=== PATIENT | female | born 1940 | race Hispanic/Latino ===

== ENCOUNTER 2019-11-10 14:55 | Emergency (ER) | payer OTHER ==
[2019-11-10] MEDS ORDERED: TETANUS/DIPHTHERIA TOXOID [ADULT] 0.5 ML VIAL IM ONE (14:56)
[2019-11-10] MEDS ORDERED: CLINDAMYCIN 600 MG/D5% WATER 50 ML IV ONE (16:33)
[2019-11-10 16:46] LABS: EOSINOPHILS % (AUTO) 5.9 % (0.0-8.0); HEMATOCRIT 28.3 % (36-48); LYMPHOCYTES % (AUTO) 14.7 % (21.0-51.0); MEAN CORPUSCULAR HGB CONC 32.5 g/dL (32.0-36.0); MEAN CORPUSCULAR VOLUME 92.2 fL (79-99); MONOCYTES % (AUTO) 5.1 % (3.0-13.0); NEUTROPHILS % (AUTO) 73.9 % (40.0-77.0); PLATELET COUNT (AUTO) 207 K/uL (130-400); RED BLOOD CELL COUNT(AUTO) 3.07 MIL/uL (4.00-5.50); RED CELL DISTRIBUTION WIDTH 15.9 % (11.0-15.5); WHITE BLOOD COUNT (AUTO) 5.5 K/uL (4.8-10.8)
[2019-11-10 17:00] LABS: ALBUMIN 2.3 g/dL (3.5-5.0); BILIRUBIN,TOTAL 0.6 mg/dL (0.2-1.0); CREATININE 1.1 mg/dL (0.5-1.5); TOTAL PROTEIN, SERUM 6.7 g/dL (6.0-8.3)
[2019-11-10 17:01] LABS: POTASSIUM 2.3 mmol/L (3.5-5.1)
[2019-11-10] MEDS ORDERED: POTASSIUM BICARB/CIT AC 25 MEQ TABLET.EFF ONE (17:41)
== END 2019-11-10 19:58 | disposition home or self-care (01) ==
LOC: EDH 14:55 → EDBD 14:55 → EDH 19:58
DX: L02.818 Cutaneous abscess of other sites (principal); E87.6 Hypokalemia; I10 Essential (primary) hypertension; E78.00 Pure hypercholesterolemia, unspecified
CPT/HCPCS: 36415; 70450; 80053; 85025; 87070; 87076; 87077; 87186; 90471; 90714; 96365; 96366; 99284; J3490

== ENCOUNTER 2019-12-09 15:57 | Observation (INO) | payer OTHER ==
[~2019-12-09] VITALS: Ht 149.9 cm; Wt 50.3 kg
[2019-12-09 16:26] LABS: BASOPHILS % (AUTO) 0.4 % (0.0-5.0); EOSINOPHILS % (AUTO) 3.3 % (0.0-8.0); LYMPHOCYTES % (AUTO) 18.5 % (21.0-51.0); MEAN CORPUSCULAR HEMOGLOBIN 29.7 pg (27.0-33.0); MEAN CORPUSCULAR HGB CONC 31.9 g/dL (32.0-36.0); MEAN CORPUSCULAR VOLUME 93.1 fL (79-99); NEUTROPHILS % (AUTO) 71.4 % (40.0-77.0); PLATELET COUNT (AUTO) 183 K/uL (130-400); RED CELL DISTRIBUTION WIDTH 15.9 % (11.0-15.5); WHITE BLOOD COUNT (AUTO) 4.8 K/uL (4.8-10.8)
[2019-12-09 16:31] LABS: CREATININE 1.2 mg/dL (0.5-1.5); POTASSIUM 3.2 mmol/L (3.5-5.1)
[2019-12-09 16:33] LABS: INR 0.98 (0.85-1.15); PARTIAL THROMBOPLASTIN TIME 27.3 SEC (26.3-35.5); PROTHROMBIN TIME 10.6 SEC (9.6-11.6)
[2019-12-09 16:36] LABS: ALBUMIN 2.6 g/dL (3.5-5.0); BILIRUBIN,TOTAL 0.6 mg/dL (0.2-1.0); TOTAL PROTEIN, SERUM 7.5 g/dL (6.0-8.3)
[2019-12-09] MEDS ORDERED: ASPIRIN 325 MG TABLET ONE (18:40)
[2019-12-09] MEDS: NITROGLYCERIN 1GM/1 INCH PACKET TD SCH (20:00)
[2019-12-09] MEDS ORDERED: MORPHINE SULFATE 2 MG/ML 1ML SYG IVP PRN (20:00)
[2019-12-09] MEDS ORDERED: POTASSIUM CHLORIDE 10% ELIXIR 20 MEQ/15 ML UDCUP PO PRN (20:00)
[2019-12-09] MEDS ORDERED: LIDOCAINE HCL-MPF 1% 2ML VIAL IV PRN (20:00)
[2019-12-09] MEDS ORDERED: MAGNESIUM 2GM PREMIX 50ML 50 ML IV PRN (20:00)
[2019-12-09] MEDS ORDERED: ONDANSETRON HCL 4 MG/2 ML VIAL IV PRN (20:00)
[2019-12-09] MEDS ORDERED: ACETAMINOPHEN 325 MG TAB PO PRN ×2 (20:00)
[2019-12-09] MEDS ORDERED: POTASSIUM CHLORIDE 20MEQ/100ML 100 ML IV PRN (20:00)
[2019-12-09] MEDS ORDERED: FAMOTIDINE 20MG TAB 20 MG TAB ONE (20:32)
[2019-12-09] MEDS ORDERED: POTASSIUM CHLORIDE 20 MEQ ERTAB PO ONE (20:32)
[2019-12-09] MEDS ORDERED: NITROGLYCERIN 1GM/1 INCH PACKET TD ONE (20:32)
[2019-12-09] MEDS ORDERED: HYDRALAZINE HCL 20 MG/ML VIAL ONE (20:44)
[2019-12-09 21:15] VITALS: BP 168/60
[2019-12-09 23:00] VITALS: BP 201/91
[2019-12-09] MEDS ORDERED: FURO40TA5 PO (23:07)
[2019-12-09] MEDS ORDERED: MEMA5TAB42 PO (23:07)
[2019-12-09] MEDS ORDERED: OMEP40CA13 PO (23:07)
[2019-12-09] MEDS ORDERED: METO-391 PO (23:07)
[2019-12-09] MEDS ORDERED: LISI-613 PO (23:07)
[2019-12-09] MEDS ORDERED: SERT25TA5 PO (23:07)
[2019-12-09] MEDS ORDERED: LEVO75 PO (23:07)
[2019-12-09] MEDS ORDERED: ATOR10 PO (23:07)
[2019-12-10] VITALS (8 sets, daily range): BP systolic 121–201; BP diastolic 45–101
[2019-12-10] MEDS: HYDRALAZINE HCL 20 MG/ML VIAL IV PRN ×2 (00:33→20:22)
[2019-12-10] MEDS: NITROGLYCERIN 1GM/1 INCH PACKET TD SCH ×3 (04:00→20:22)
[2019-12-10 05:46] LABS: BASOPHILS % (AUTO) 0.3 % (0.0-5.0); EOSINOPHILS % (AUTO) 0.8 % (0.0-8.0); HEMATOCRIT 24.3 % (36-48); LYMPHOCYTES % (AUTO) 8.9 % (21.0-51.0); MEAN CORPUSCULAR HEMOGLOBIN 33.1 pg (27.0-33.0); MEAN CORPUSCULAR HGB CONC 34.2 g/dL (32.0-36.0); MEAN CORPUSCULAR VOLUME 96.8 fL (79-99); MONOCYTES % (AUTO) 4.6 % (3.0-13.0); NEUTROPHILS % (AUTO) 85.1 % (40.0-77.0); PLATELET COUNT (AUTO) 179 K/uL (130-400); RED BLOOD CELL COUNT(AUTO) 2.51 MIL/uL (4.00-5.50); RED CELL DISTRIBUTION WIDTH 17.2 % (11.0-15.5); WHITE BLOOD COUNT (AUTO) 6.5 K/uL (4.8-10.8)
[2019-12-10 06:12] LABS: ALANINE AMINOTRANSFERASE 21 U/L (12-78); ALBUMIN 2.4 g/dL (3.5-5.0); ASPARTATE AMINOTRANSFERASE 30 U/L (10-37); BILIRUBIN,TOTAL 0.5 mg/dL (0.2-1.0); CHLORIDE 107 mmol/L (101-111); CHOLESTEROL 125 mg/dL (<200); CREATINE KINASE, TOTAL 34 U/L (21-232); CREATININE 1.3 mg/dL (0.5-1.5); GLOMERULAR FILTR. RATE CALC 42 mL/min (>60); GLUCOSE,RANDOM 148 mg/dL (70-105); HDL CHOLESTEROL 42 mg/dL (35-85); LDL DIRECT 74 mg/dL (0-99); MYOGLOBIN 47 ng/mL (10-92); POTASSIUM 3.5 mmol/L (3.5-5.1); SODIUM SERUM 141 mmol/L (136-145); THYROID STIMULATING HORMONE 11.09 uIU/mL (0.36-3.74); TOTAL PROTEIN, SERUM 6.8 g/dL (6.0-8.3); TRIGLYCERIDES 66 mg/dL (30-200); TROPONIN I < 0.04 ng/mL (0.00-0.06); UREA NITROGEN, BLOOD 22 mg/dL (7-18)
[2019-12-10 06:54] LABS: CARBON DIOXIDE 27 mmol/L (21-32)
[2019-12-10] MEDS: FAMOTIDINE 20MG TAB 20 MG TAB PO SCH (08:16)
[2019-12-10] MEDS: ASPIRIN 81MG TAB.CHEW PO SCH (08:16)
--- NOTE | 2019-12-10 19:25 | NUR ---
MD DR WILHELM IN TO SEE PT. D/C ORDERS RECEIVED. PT AND FAMILY AWARE OF D/C ORDERS. D/C PAPERS PREPARED.
[2019-12-10] MEDS ORDERED: LEVO88TA7 PO (19:27)
[2019-12-10] MEDS ORDERED: FERS325 PO (19:27)
[2019-12-10] MEDS ORDERED: HYDR12.54 PO (19:27)
--- NOTE | 2019-12-10 20:15 | NUR ---
HOLD D/C REFERRED PT'S ELEVATED BP TO DR WILHELM. NEW ORDERS GIVEN, PLEASE REFER TO CHART. D/C HELD AT THIS TIME. PT AND FAMILY MADE AWARE. SHIFT ASSESSMENT DONE, PLEASE REFER TO CHART. DUE MEDS ADMINISTERED, TOLERATED WELL. WILL RE-ASSESS PT. Addendum: 12/11/19 at 0150 by VALERIE SARGENT RN RN Amended: Links added.
[2019-12-10] MEDS: POTASSIUM CHLORIDE 20 MEQ ERTAB PO PRN (20:24)
--- NOTE | 2019-12-10 21:30 | NUR ---
RE-CHECK PT'S BP RE-SZIEVSI=214/90, HR=88. STARTED ON NEW MED OF HYDROCHLOROTHIAZIDE. ENCOURAGED TO REST AND SLEEP. WILL RE-ASSESS PT.
[2019-12-10] MEDS: HYDROCHLOROTHIAZIDE 25 MG TABLET PO SCH (21:52)
--- NOTE | 2019-12-10 23:59 | NUR ---
PAGED PT'S BP ELEVATED AT 179/82, HR=87, SINUS RHYTHM. PT IS ASYMPTOMATIC. NO DISTRESS NOTED. NO COMPLAINTS VERBALIZED. ERIC MONROY NP [employer], VIA ANSWERING SERVICE, AWAITING CALL BACK.
--- NOTE | 2019-12-11 00:16 | NUR ---
MIGUEL ÁNGEL MONROY CALLED BACK AND REFERRED PT'S BP. NEW ORDERS GIVEN, PLEASE REFER TO CPOE. WILL MEDICATE PT.
[2019-12-11] MEDS: POTASSIUM CHLORIDE 20 MEQ ERTAB PO PRN (00:26)
[2019-12-11] MEDS: HYDRALAZINE HCL 20 MG/ML VIAL IV PRN (00:27)
[2019-12-11] MEDS: HYDRALAZINE HCL 20 MG/ML VIAL IV SCH ×2 (00:30→08:55)
--- NOTE | 2019-12-11 01:16 | NUR ---
MG PT RESTING WELL, NO DISTRESS NOTED. MAGNESIUM REPLACEMENT HUNG. KEPT RESTED AND COMFORTABLE IN BED. CALL LIGHT WITHIN REACH. FAMILY IN ROOM KEEPING CLOSE WATCH.
[2019-12-11 01:30] VITALS: BP 138/59
[2019-12-11 04:00] VITALS: BP 132/75
[2019-12-11] MEDS: NITROGLYCERIN 1GM/1 INCH PACKET TD SCH ×2 (04:01→13:15)
--- NOTE | 2019-12-11 04:40 | NUR ---
ROUNDS PT SLEPT AT INTERVALS. NO DISTRESS NOTED. KEPT RESTED AND COMFORTABLE. FOR MORE CARE. FAMILY AT BEDSIDE ON CLOSE WATCH.
[2019-12-11 06:49] LABS: MAGNESIUM 2.7 mg/dL (1.80-2.40); POTASSIUM 4.3 mmol/L (3.5-5.1)
[2019-12-11 08:29] VITALS: BP 186/96
[2019-12-11] MEDS: ASPIRIN 81MG TAB.CHEW PO SCH (08:47)
[2019-12-11] MEDS: FAMOTIDINE 20MG TAB 20 MG TAB PO SCH (08:47)
[2019-12-11] MEDS: HYDROCHLOROTHIAZIDE 25 MG TABLET PO SCH (08:49)
[2019-12-11 12:11] VITALS: BP 156/100
[2019-12-11] MEDS ORDERED: HYDROCHLOROTHIAZIDE 25 MG TABLET PO SCH (15:00)
[2019-12-11 16:13] VITALS: BP 159/77
[2019-12-11] MEDS ORDERED: AMLO2.5T4 PO (16:50)
[2019-12-11] MEDS ORDERED: HYDR25TA PO (16:50)
[2019-12-11 17:05] VITALS: BP 148/87
--- NOTE | 2019-12-11 18:00 | NUR ---
DC DC HOME INSTRUCTIONS GIVEN TO PT AND DAUGHTER, ALL QUESTIONS ANSWERED; PT AND DAUGHTER ACKNOWLEDGED ALL INFORMATION. AWARE OF NEEDING TO CUSTOMS OFFICER PRESCRIPTIONS AT PHARMACY.
[2019-12-12] MEDS ORDERED: HYDROCHLOROTHIAZIDE 25 MG TABLET PO SCH (09:00)
--- NOTE | 2019-12-12 09:30 | NUR ---
VASYL NOTE PATIENT DISCHARGED HOME, NO NEEDS VERBALIZED BY NURSING STAFF Addendum: 12/12/19 at 0931 by ROSARIO MELÉNDEZ RN CM Amended: Links added.
[2020-04-22] MEDS ORDERED: FURO20TA6 PO (10:00)
[2020-04-22] MEDS ORDERED: HYDR12.54 PO (10:00)
== END 2019-12-11 20:00 | disposition home or self-care (01) ==
LOC: EDH 15:57 → INTOOBSV 19:53 → EDHIP 19:53 → 4DH 20:31
PROVIDERS: ADMIT Internal Medicine; ATTEND Internal Medicine
DX: I20.0 Unstable angina (principal); I10 Essential (primary) hypertension; H91.90 Unspecified hearing loss, unspecified ear; F03.90 Unspecified dementia, unspecified severity, without behavioral disturbance, psychotic disturbance, mood disturbance, and anxiety; E78.00 Pure hypercholesterolemia, unspecified; Z87.891 Personal history of nicotine dependence; Z86.14 Personal history of Methicillin resistant Staphylococcus aureus infection
CPT/HCPCS: 36415 ×3; 71045; 80053 ×2; 80061; 82550 ×2; 83735 ×2; 83874; 84132; 84443; 84484 ×3; 85025 ×2; 85610; 85730; 93005; 96365; 96366; 96375; 96376 ×2; 99285; G0378 ×6; J0360 ×5; J3475

== ENCOUNTER 2020-07-25 23:13 | Emergency (ER) | payer OTHER ==
[~2020-07-25 23:13] MED LIST: AMLO2.5T4 PO; HYDR12.54 PO; LEVO88TA7 PO; MEMA5TAB42 PO; METO-391 PO; OMEP40CA13 PO; SERT25TA5 PO
[2020-07-25 23:38] LABS: BASOPHILS % (AUTO) 0.3 % (0.0-5.0); EOSINOPHILS % (AUTO) 3.4 % (0.0-8.0); HEMATOCRIT 29.7 % (36-48); LYMPHOCYTES % (AUTO) 13.9 % (21.0-51.0); MEAN CORPUSCULAR HEMOGLOBIN 30.4 pg (27.0-33.0); MEAN CORPUSCULAR HGB CONC 32.7 g/dL (32.0-36.0); MEAN CORPUSCULAR VOLUME 93.1 fL (79-99); MONOCYTES % (AUTO) 6.5 % (3.0-13.0); NEUTROPHILS % (AUTO) 75.5 % (40.0-77.0); PLATELET COUNT (AUTO) 188 K/uL (130-400); RED BLOOD CELL COUNT(AUTO) 3.19 MIL/uL (4.00-5.50); RED CELL DISTRIBUTION WIDTH 13.8 % (11.0-15.5); WHITE BLOOD COUNT (AUTO) 7.4 K/uL (4.8-10.8)
[2020-07-25 23:54] LABS: INR 1.07 (0.85-1.15); PROTHROMBIN TIME 11.4 SEC (9.6-11.6)
[2020-07-25 23:56] LABS: PARTIAL THROMBOPLASTIN TIME 25.7 SEC (26.3-35.5)
[2020-07-26 00:04] LABS: CREATININE 1.2 mg/dL (0.5-1.5); POTASSIUM 3.3 mmol/L (3.5-5.1)
[2020-07-26 00:06] LABS: BILIRUBIN,URINE Negative (NEGATIVE); COLOR,URINE Dark Yellow (YELLOW); GLUCOSE, URINE (UA) Negative (NEGATIVE); KETONES,URINE Trace mg/dL (NEGATIVE); LEUKOCYTE ESTERASE ,URINE Large (NEGATIVE); NITRATE,URINE Positive (NEGATIVE); OCCULT BLOOD,URINE Large (NEGATIVE); PROTEIN,URINE POS 1+ mg/dL (NEGATIVE)
[2020-07-26 00:08] LABS: APPEARANCE,URINE CLOUDY (CLEAR)
[2020-07-26 00:10] LABS: ALBUMIN 2.3 g/dL (3.5-5.0); BILIRUBIN,TOTAL 0.5 mg/dL (0.2-1.0); TOTAL PROTEIN, SERUM 6.5 g/dL (6.0-8.3)
[2020-07-26 00:15] LABS: BACTERIA,URINE Many /HPF (None Seen); WBC,URINE 26-50 /HPF (0-1)
[2020-07-26] MEDS ORDERED: CEFTRIAXONE SODIUM 1 GM ONE (00:19)
== END 2020-07-26 00:38 | disposition home or self-care (01) ==
LOC: EDH 23:13
DX: N39.0 Urinary tract infection, site not specified (principal); E78.00 Pure hypercholesterolemia, unspecified; I10 Essential (primary) hypertension
CPT/HCPCS: 36415; 80053; 81001; 82150; 83690; 84484; 85025; 85610; 85730; 87077; 87088; 87186; 93005; 96365; 96375; 99284; J0696